=== PATIENT | female | born 1970 | race Caucasian/White ===

== ENCOUNTER 2017-02-19 18:45 | Emergency (ER) | payer BC | END 2017-02-19 21:25 | disposition left against medical advice (07) | LOC: ER 18:45 | DX: Z53.20 Procedure and treatment not carried out because of patient's decision for unspecified reasons (principal) ==

== ENCOUNTER 2017-11-07 15:42 | Emergency (ER) | payer BC ==
[2017-11-07] MEDS ORDERED: KETOROLAC 30 MG/ML VIAL IVP ONE (16:02)
--- NOTE | 2017-11-07 16:13 | Emergency Department Record ---
History of Present Illness - General Chief Complaint: Shortness of breath Stated Complaint: ANA M Time Seen by Provider: 11/07/17 15:51 Source: Patient Mode of Arrival: Ambulatory Limitations: No limitations - History of Present Illness Initial Comments: The patient is here due to having a cough for about 2 weeks that is getting worse now. She began coughing worse yesterday and developed L rib pain only with coughing. Today the pain worsened and now is present over the L ribs with any twisting, deep breathing, coughing, or bending. The patient also feels mildly SOB at times but the main problem now is L rib pain. She states she also is feeling some pain down her L arm also. The patient denies any fever, chills, R sided pain, leg pain or swelling, recent travel or coughing up blood. The patient states she has been coughing up colored sputum at times. MD Complaint: Shortness of breath -: Awoke with symptoms Radiation: Left arm Severity: Moderate Severity scale (1-10): 8 Quality: Other Consistency: Constant Improves With: Nothing Worsens With: Nothing Known History Of: COPD Associated Symptoms: Chest pain, Cough, Sputum production - Related Data Previous Rx's Medication Instructions Recorded Azithromycin [Zithromax] 250 mg PO ASDIR #4 tab 11/07/17 Benzonatate [Tessalon] 1 cap PO Q8H PRN #15 cap 11/07/17 Ibuprofen [Motrin] 800 mg PO TID PRN #20 tab 11/07/17 Allergies Allergy/AdvReac Type Severity Reaction Status Date / Time varenicline tartrate Allergy RASH Verified 03/25/16 20:28 [From Chantix] Travel Screening - Travel/Exposure Within Last 30 Days Have you traveled within the last 30 days?: No Review of Systems Constitutional: Denies: Chills, Fever Eyes: Denies: Eye discharge ENT: Reports: Congestion Respiratory: Reports: Cough, Dyspnea. Denies: Hemoptysis Past Medical History - SOCIAL HISTORY Smoking Status: Former smoker Alcohol Use: None Drug Use: None - RESPIRATORY Hx Respiratory Disorders: No - CARDIOVASCULAR Hx Cardio Disorders: No - NEURO Hx Neuro Disorders: Yes Hx Brain Tumor: Yes - GI Hx GI Disorders: No - Hx Genitourinary Disorders: No - ENDOCRINE Hx Endocrine Disorders: No - MUSCULOSKELETAL Hx Musculoskeletal Disorders: No - PSYCH Hx Psych Problems: Yes Hx Anxiety: Yes Hx Depression: Yes - HEMATOLOGY/ONCOLOGY Hx Hematology/Oncology Disorders: Yes Hx Cancer: Yes (benign brain tumor) Family Medical History Any Significant Family History?: Yes Hx Alcohol Use: Father, Grandparents Hx Anxiety: Mother, Grandparents Hx Cancer: Father, Grandparents Hx Depression: Mother, Brother/Sister, Grandparents Hx Diabetes: Mother Hx Heart Disease: Father, Mother Hx HTN: Mother Hx Liver Disease: Grandparents Hx Resp Disorders: Mother Hx Seizures: Mother Hx Stroke: Mother Physical Exam - General General Appearance: Alert, Oriented x3, Cooperative, No acute distress - Head Head exam: Atraumatic, Normocephalic, Normal inspection - Eye Eye exam: Normal appearance, PERRL - ENT Throat exam: Normal inspection. negative: Tonsillar erythema, Tonsillar exudate - Neck Neck exam: Normal inspection, Full ROM. negative: Tenderness - Respiratory Respiratory exam: Normal lung sounds bilaterally, Chest wall tenderness (The pain over the L ribs is 100% reproducible with palpation of the L mid ribs. The pain also is very reproducible with any chest rotation or deep breathing.). negative: Respiratory distress, Stridor, Wheezes - Cardiovascular Cardiovascular Exam: Regular rate, Normal rhythm, Normal heart sounds - GI/Abdominal GI/Abdominal exam: Soft, Normal bowel sounds. negative: Tenderness - Extremities Extremities exam: Normal inspection, Full ROM, Normal capillary refill, Tenderness (There is L axilla tenderness which also does reproduce the patient' s L arm pain 100%. It seems to be very tender over her ribs also at this site in addition to the lower ribs.) Image of Full Body: 1 - site of pain and tenderness. 2 - Site of pain and tenderness. - Neurological Neurological exam: Alert, Normal gait. negative: Abnormal gait, Motor sensory deficit Course Vital Signs 11/07/17 15:46 Temperature 98.4 F Pulse Rate 71 Respiratory 20 Rate Blood Pressure 105/72 Pulse Ox 100 - Reevaluation(s) Reevaluation #1: The patient is doing better and her pain is improving. I did explain to her that the xrays do not demonstrate a fx but possibly an early pneumonia. It also could be a nodular opacity so she was told to see her PCP to assure clearing of the area. If not she will need a CT. 11/07/17 16:59 Reevaluation #2: EKG # 2: Normal. 11/07/17 17:16 Reevaluation #3: The patient is doing very well at this time. Her pain is improved and she is ready for home. The L axilla and mid rib pain is still very reproducible. She understands the need to F/U with her PCP next week for a repeat CXR in 2-4 weeks. 11/07/17 17:26 Medical Decision Making - Data Complexity MDM Data: Labs Ordered and/or Reviewed, X-Ray Ordered and/or Reviewed, EKG Ordered and/or Reviewed - Lab Data Result diagrams: 11/07/17 16:10 11/07/17 16:10 - EKG Data -: EKG Interpreted by Me EKG: No Acute Changes (Few PVC's, O/W neg.) - Radiology Data Radiology results: Report reviewed (L RIbs: Neg CXR: 2 areas of subtle infiltrate or atelectasis or nodular opacities L lung base.) Disposition Disposition: Discharge Clinical Impression: Upper respiratory infection, acute Disposition: Home, Self-Care Condition: (2) Stable Instructions: Upper Respiratory Infection (ED), Chest Wall Pain (ED) Additional Instructions: Please continue your [place] for pain and add Motrin. Please take Tessalon for coughing and also continue the Zithromax. Please see your PCP next week for recheck and to have your repeat CXR ordered. Return to the ER for any worsening symptoms. Prescriptions: Azithromycin [Zithromax] 250 mg PO ASDIR #4 tab Benzonatate [Tessalon] 1 cap PO Q8H PRN #15 cap PRN Reason: Cough Ibuprofen [Motrin] 800 mg PO TID PRN #20 tab PRN Reason: Pain Forms: Patient Portal Access Time of Disposition: 17:32 Quality - Quality Measures Quality Measures: N/A - Blood Pressure Screening View Details: Yes Does Patient Have Any of the Following: No Blood Pressure Classification: Normal BP Reading Systolic Measurement: 105 Diastolic Measurement: 62 Screening for High Blood Pressure: < Normal BP, F/U Not Required > [G8783]
[2017-11-07 16:17] LABS: BASO % 0.3 % (0-6); EOS % 2.3 % (0-6); GRAN % 63.2 % (47-80); HEMATOCRIT 43.4 % (35.0-47.0); HEMOGLOBIN 14.9 gm/dl (11.6-16.0); LYMPH % 24.8 % (16-45); MEAN CELL VOLUME 84.8 fl (81-97); MEAN CORPUSCULAR HEMOGLOBIN 29.1 pg (27-33); MEAN CORPUSCULAR HGB CONC 34.3 g/dl (32-36); MEAN PLATELET VOLUME 10.5 fl (7.4-10.4); MONO % 9.4 % (0-9); PLATELET COUNT 254 K/uL (130-400); RED BLOOD COUNT 5.12 M/uL (3.80-5.40); RED CELL DISTRIBUTION WIDTH 14.5 % (11.5-14.5); WHITE BLOOD COUNT W/O DIFF 8.7 K/uL (4.2-12.2)
[2017-11-07 16:37] LABS: BLOOD UREA NITROGEN 13 mg/dL (6-20); CREATININE 0.8 mg/dL (0.5-0.9); EST GLOMERULAR FILTRATION RATE > 60 mL/min
[2017-11-07] MEDS ORDERED: MORPHINE SULFATE 5 MG/ML PFS IVP ONE (16:39)
[2017-11-07 16:40] LABS: GLUCOSE,RANDOM 104 mg/dL (74-109)
[2017-11-07] MEDS ORDERED: ONDANSETRON HCL IV 4 MG/2 ML VIAL IVP ONE (16:40)
[2017-11-07 16:43] LABS: CREATINE PHOSPHOKINASE 241 U/L (26-192)
[2017-11-07 16:45] LABS: CKMB 2.5 ng/mL (<3.77)
[2017-11-07] MEDS ORDERED: AZITHROMYCIN 500 MG TABLET PO ONE (17:02)
--- NOTE | 2017-11-08 21:51 | RADIOLOGY REPORT ---
EXAM: CHEST 2 VIEWS HISTORY: PRODUCTIVE COUGH FOR ONE WEEK. DIFFICULTY BREATHING. UPPER LEFT RIB PAIN. TECHNIQUE: Two-view chest. COMPARISON: Chest x-ray 03/25/16. CT of the chest 03/25/16. Left rib series 06/17. FINDINGS: There are two areas of nodular opacity in the left lower lung field measuring 19 and 13 mm in size, respectively. The right lung is clear. The cardiac silhouette, diaphragm, and osseous structures are unremarkable. IMPRESSION: TWO ILL-DEFINED NODULAR OPACITIES AT THE LEFT LOWER LUNG BASE NOT SEEN PREVIOUSLY. DIFFERENTIAL WOULD INCLUDE PNEUMONITIS OR SCARRING. NEOPLASM LESS LIKELY. RECOMMEND RADIOGRAPHIC FOLLOW-UP TO ENSURE RESOLUTION AFTER APPROPRIATE THERAPY. IF THE FINDINGS PERSIST, WOULD THEN RECOMMEND CHEST CT. JOB NUMBER: [id number] MTDD
--- NOTE | 2017-11-08 21:54 | RADIOLOGY REPORT ---
EXAM: RIBS, LEFT 2 VIEWS HISTORY: FORMER SMOKER, COUGH. UPPER LEFT RIB PAIN. TECHNIQUE: Four oblique views of the left ribs. COMPARISON: Chest x-ray 11/07/17. FINDINGS: Twelve pairs of ribs. No displaced fracture. No lytic or blastic lesion. Nodular opacity left lower lung field laterally as noted on the chest x- ray of the same day. IMPRESSION: 1. UNREMARKABLE LEFT RIBS. 2. SEE CHEST X-RAY DICTATION FOR NODULAR OPACITY DESCRIPTION AT LEFT BASE. JOB NUMBER: [id number] MTDD
== END 2017-11-07 17:49 | disposition home or self-care (01) ==
LOC: ER 15:42
DX: J06.9 Acute upper respiratory infection, unspecified (principal); R05 Cough; R07.89 Other chest pain; R06.02 Shortness of breath
CPT/HCPCS: 99284 ×2; 96374; 96375; 82550; 85025; 82553; 80048; 84484; 85379; 71020; 71100; 93005; 93010; J1885; J2405; J2270

== ENCOUNTER 2018-10-29 12:58 | Emergency (ER) | payer MEDICARE, MEDICAID ==
--- NOTE | 2018-10-29 13:28 | Emergency Department Record ---
History of Present Illness - General Chief complaint: Pain Stated complaint: RT SIDE BODY PAIN AND NUMBNESS Time Seen by Provider: 10/29/18 13:13 Source: Patient Mode of Arrival: Ambulatory Limitations: No limitations - History of Present Illness Initial comments: The patient is here due to R sided paresthesias and slight numbness for 7 days. The symptoms have been slowly worsening over the 7 days. She also has been having bilateral hand pain for 2-3 weeks. She did see her PCP last week and was told to get wrist splints for carpal tunnel. There has been no LICONA, visual changes, speech problems, facial drooping, trouble swallowing, balance issues, or weakness. The paresthesias are over the R face, medial R arm, R side of chest and abdomen and R leg. The patient has had a benign brain tumor removed 4 years ago at [facility] but has had no problems since. MD Complaint: Extremity pain Onset/Timin -: Week(s) History of Same: No Radiation: None Severity scale (1-10): 5 Consistency: Constant Improves with: Medication Worsens with: Nothing Associated Symptoms: Denies other symptoms - Related Data Home Medications Medication Instructions Recorded Confirmed Last Taken Cyclobenzaprine HCl [Flexeril] 10 mg PO QHS 10/29/18 10/29/18 10/29/18 Gabapentin [Neurontin] 300 mg PO QHS 10/29/18 10/29/18 10/29/18 Previous Rx's Medication Instructions Recorded Amoxicillin/Potassium Clav 1 tab PO BID #14 tab 10/29/18 [Augmentin 875-125 Tablet] Allergies Allergy/AdvReac Type Severity Reaction Status Date / Time varenicline tartrate Allergy RASH Verified 10/29/18 13:06 [From Chantix] Travel Screening - Travel/Exposure Within Last 30 Days Have you traveled within the last 30 days?: No - Travel/Exposure Within Last Year Have you traveled outside the [place] in the last year?: No - Additonal Travel Details Have you been exposed to anyone with a communicable illness?: No - Travel Symptoms Symptom Screening: None Review of Systems Constitutional: Denies: Chills, Fever Eyes: Denies: Eye discharge ENT: Denies: Congestion Respiratory: Denies: Cough Cardiovascular: Denies: Arrhythmia, Chest pain Endocrine: Denies: Fatigue Gastrointestinal: Denies: Abdominal pain, Nausea Genitourinary: Denies: Dysuria Musculoskeletal: Denies: Arthralgia Skin: Denies: Bruising Past Medical History - SOCIAL HISTORY Smoking Status: Current every day smoker Alcohol Use: None Drug Use Detail:: Marijuana - RESPIRATORY Hx Respiratory Disorders: No - CARDIOVASCULAR Hx Cardio Disorders: No - NEURO Hx Neuro Disorders: Yes Hx Brain Tumor: Yes - GI Hx GI Disorders: No - Hx Genitourinary Disorders: No - ENDOCRINE Hx Endocrine Disorders: No - MUSCULOSKELETAL Hx Musculoskeletal Disorders: No - PSYCH Hx Psych Problems: Yes Hx Anxiety: Yes Hx Depression: Yes - HEMATOLOGY/ONCOLOGY Hx Hematology/Oncology Disorders: Yes Hx Cancer: Yes (benign brain tumor) Family Medical History Any Significant Family History?: Yes Hx Alcohol Use: Father, Grandparents Hx Anxiety: Mother, Grandparents Hx Cancer: Father, Grandparents Hx Depression: Mother, Brother/Sister, Grandparents Hx Diabetes: Mother Hx Heart Disease: Father, Mother Hx HTN: Mother Hx Liver Disease: Grandparents Hx Resp Disorders: Mother Hx Seizures: Mother Hx Stroke: Mother Physical Exam - General General Appearance: Alert, Oriented x3, Cooperative, No acute distress, Other ( The patient has clear speech and appears very comfortable and nontoxic.) - Head Head exam: Atraumatic, Normocephalic - Eye Eye exam: Normal appearance, PERRL, EOMI. negative: Conjunctival injection, Nystagmus - ENT Throat exam: Normal inspection. negative: Tonsillar erythema, Tonsillar exudate - Neck Neck exam: Normal inspection, Full ROM. negative: Lymphadenopathy, Meningismus , Tenderness, Thyromegaly - Respiratory Respiratory exam: Normal lung sounds bilaterally. negative: Respiratory distress - Cardiovascular Cardiovascular Exam: Regular rate, Normal rhythm, Normal heart sounds - GI/Abdominal GI/Abdominal exam: Soft, Normal bowel sounds. negative: Tenderness - Extremities Extremities exam: Normal inspection, Full ROM, Normal capillary refill. negative: Tenderness - Back Back exam: Reports: Normal inspection - Neurological Neurological exam: Alert, CN II-XII intact, Motor sensory deficit (There is a very slight subjective decreased sensation to light touch and temp to the R arm and leg. There is no weakness to the arms and legs.), Normal gait, Oriented X3, Reflexes normal, Other (Neg Drift and [place].). negative: Abnormal gait, Altered - Psychiatric Psychiatric exam: negative: Anxious Course Vital Signs 10/29/18 13:09 Temperature 97.6 F Pulse Rate 73 Respiratory 18 Rate Blood Pressure 126/81 Pulse Ox 98 - Reevaluation(s) Reevaluation #1: I did discuss the issues with the patient. The lab work and CT did not demonstrate any abnormality to attribute her symptoms to. Due to that I did recommend hospital admission for a Neurological consultation and MRI of the neck and brain. The patient is refusing that plan and does not want to stay in the hospital for the evaluation. I did explain to her that by NOT staying she could go home and the symptoms could worsen, she could have a stroke, become disabled and even . The patient understands the risks and accepts the risks. She is to return to the ER at any time for any worsening symptoms. We will place her on Augmentin due to the Sphenoid sinus dz. 10/29/18 14:37 Medical Decision Making - Data Complexity MDM Data: Labs Ordered and/or Reviewed, X-Ray Ordered and/or Reviewed - Lab Data Result diagrams: 10/29/18 13:30 10/29/18 13:30 - Radiology Data Radiology results: Report reviewed (Head CT: Neg for acute brain changes. Mild sphenoid sinusitis.) Disposition Disposition: Discharge Clinical Impression: Paresthesia and pain of right extremity Disposition: Home, Self-Care Condition: (2) Stable Instructions: Paresthesia (ED) Additional Instructions: Please continue your regular medicines and take the Augmentin along with an OTC antihistamine for the congestion. Please see your family doctor later this week for recheck and to have the MRI's ordered. Return to the ER for any worsening symptoms or if you change your mind about the inpatient evaluation. Prescriptions: Amoxicillin/Potassium Clav [Augmentin 875-125 Tablet] 1 tab PO BID #14 tab Forms: Patient Portal Access Time of Disposition: 14:41 Quality - Quality Measures Quality Measures: N/A - Blood Pressure Screening View Details: Yes Does Patient Have Any of the Following: No Blood Pressure Classification: Pre-Hypertensive BP Reading Systolic Measurement: 126 Diastolic Measurement: 81 Screening for High Blood Pressure: < Pre-Hypertensive BP, F/U Documented > [ G8950] Pre-Hypertensive Follow-up Interventions: Referral to alternative/primary care provider.
[2018-10-29 13:36] LABS: BASO % 0.2 % (0-6); EOS % 5.2 % (0-6); GRAN % 43.4 % (47-80); HEMATOCRIT 42.2 % (35.0-47.0); HEMOGLOBIN 13.8 gm/dl (11.6-16.0); MEAN CELL VOLUME 84.7 fl (81-97); MEAN CORPUSCULAR HEMOGLOBIN 27.7 pg (27-33); MEAN CORPUSCULAR HGB CONC 32.7 g/dl (32-36); MEAN PLATELET VOLUME 10.3 fl (7.4-10.4); MONO % 9.2 % (0-9); PLATELET COUNT 249 K/uL (130-400); RED BLOOD COUNT 4.98 M/uL (3.80-5.40); RED CELL DISTRIBUTION WIDTH 14.4 % (11.5-14.5); WHITE BLOOD COUNT W/O DIFF 5.2 K/uL (4.2-12.2)
[2018-10-29 13:45] LABS: BLOOD UREA NITROGEN 10 mg/dL (6-20); CREATININE 0.7 mg/dL (0.5-0.9); EST GLOMERULAR FILTRATION RATE > 60 mL/min
[2018-10-29 13:48] LABS: GLUCOSE,RANDOM 109 mg/dL (74-109)
[2018-10-29 13:50] LABS: ALT/SGPT 13 U/L (<33); AST/SGOT 16 U/L (10.0-35.0)
[2018-10-29 13:51] LABS: ALB/GLOB RATIO 1.3 (1.1-1.8); ALKALINE PHOSPHATASE 53 U/L (35-104)
--- NOTE | 2018-10-30 15:02 | CT SCAN REPORT ---
EXAM: NONCONTRAST CT OF THE HEAD HISTORY: RIGHT SIDED BODY NUMBNESS AND PAIN WELL BILATERAL HAND PAIN FOR ABOUT TWO WEEKS. 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 TECHNIQUE: Routine noncontrast CT of the head was obtained. Comparison: None. FINDINGS: No midline shift, mass effect or abnormal intra or extraaxial fluid collection. No cerebral edema. Focal mass or intracranial hemorrhage detected. The ventricle size is within normal limits for patient's age. The basal cisterns appear non-effaced. The visualized paranasal sinuses and mastoid air cells are clear with the exception of small volume of layering fluid in the left sphenoid sinus. No evidence of displaced calvarial fracture. IMPRESSION: 1. NO ACUTE INTRACRANIAL FINDINGS. 2. SMALL VOLUME OF LAYERING FLUID IN THE LEFT SPHENOID SINUS. JOB NUMBER: [id number] MTDD
== END 2018-10-29 14:46 | disposition home or self-care (01) ==
LOC: ER 12:58
DX: R20.2 Paresthesia of skin (principal); R20.0 Anesthesia of skin; M79.642 Pain in left hand; M79.641 Pain in right hand; F17.210 Nicotine dependence, cigarettes, uncomplicated
CPT/HCPCS: 70450; 80053; 85025; 99283; 99284